=== PATIENT | female | born 1950 | race Caucasian/White ===

== ENCOUNTER 2016-10-24 20:07 | Inpatient (IN) | payer MEDICARE ==
--- NOTE | 2016-10-23 21:30 | NUR ---
nsg: pt received a/o x 4 fr er via with dx of psychosis. pleasant, cooperative but a bit anxious. bp elevated 164/92, will notify Dr. Mathews. no hx of htn. ambulatory. cont to monitor.
[~2016-10-24] VITALS: Ht 165.1 cm; Wt 57.6 kg
--- NOTE | 2016-10-24 20:32 | NUR ---
Patient BIB private ambulance from [facility] for Medical Clearance and GPS admission. Per medical record, patient was found unresponsive by a nephew with medication bottles labeled Xanax, Trazadone, and ibuprofen. Per medical record, patient was intubated and medically treated for the overdose. Urine toxicology was negative at [facility] except ETOH was positive. Patient is A/O x4, ambulatory, calm and cooperative with staff at this time. To room 3A.
[2016-10-24] MEDS ORDERED: CITA40TA11 PO (20:42)
[2016-10-24] MEDS ORDERED: LORA0.5T PO (20:42)
[2016-10-24] MEDS ORDERED: ENOX40DI SQ (20:42)
[2016-10-24] MEDS ORDERED: TRAZ-147 PO (20:42)
[2016-10-24] MEDS ORDERED: MULT1TAB73 PO (20:42)
[2016-10-24] MEDS ORDERED: MAG30ORA PO (20:42)
[2016-10-24] MEDS ORDERED: FOLI1TAB16 PO (20:42)
--- NOTE | 2016-10-24 21:20 | NUR ---
Electronic hold from [facility] in chart, it is a faxed copy. Spoke with Eris Montes, who spoke with Imelda Ayala (Psych Intake) who stated that it was OK to use the FAXED COPY of the ELECTRONIC 6700 HOLD.
--- NOTE | 2016-10-24 21:28 | NUR ---
Pt. admitted to GPS, under care of Dr. Navarro Belongs List completed
[2016-10-24 21:30] VITALS: BP 164/92
[2016-10-24] MEDS ORDERED: MAG HYDROX/AL HYDROX/SIMETH 30 ML LIQUID UDC PO PRN (22:00)
[2016-10-24] MEDS ORDERED: MAGNESIUM HYDROXIDE 30 ML LIQUID UDC PO PRN (22:00)
[2016-10-24] MEDS: LORAZEPAM 0.5 MG TABLET PO PRN (22:03)
[2016-10-24] MEDS: ACETAMINOPHEN 325 MG TABLET PO PRN (22:04)
[2016-10-24] MEDS ORDERED: ACETAMINOPHEN 325 MG TABLET ONE (22:13)
[2016-10-24] MEDS ORDERED: LORAZEPAM 0.5 MG TABLET ONE (22:14)
--- NOTE | 2016-10-24 22:34 | NUR ---
PT Admitted on 5150 (Electronic hold copy from [facility]), per Eris Hutton, contacted Nikky who approved the acceptance of the Pt on the electronic faxed hold copy. No further comments at this time.
[2016-10-24] MEDS ORDERED: AMLODIPINE 5 MG TABLET ONE (23:00)
[2016-10-24] MEDS: AMLODIPINE 5 MG TABLET PO SCH (23:02)
[2016-10-24] MEDS: TEMAZEPAM 7.5 MG CAPSULE PO PRN (23:08)
[2016-10-25 07:30] VITALS: BP 146/87
[2016-10-25 07:37] LABS: BASOPHILS # (AUTO) 0.1 K/uL (0.0-8.0); BASOPHILS % (AUTO) 1.3 % (0.0-2.0); EOSINOPHILS # (AUTO) 0.2 K/uL (0.0-0.7); EOSINOPHILS % (AUTO) 3.7 % (0.0-7.0); HEMATOCRIT 37.4 % (37-47); HEMOGLOBIN 12.6 G/DL (12.0-16.0); LYMPHOCYTES # (AUTO) 0.9 K/UL (0.8-4.8); LYMPHOCYTES % (AUTO) 21.2 % (20.5-51.5); MEAN CORPUSCULAR HEMOGLOBIN 32.1 UUG (27.0-31.0); MEAN CORPUSCULAR HGB CONC 34 g/dL (32.0-37.0); MEAN CORPUSCULAR VOLUME 95.1 FL (81.0-99.0); MONOCYTES # (AUTO) 0.4 K/UL (0.1-1.30); MONOCYTES % (AUTO) 9.5 % (0.0-11.0); NEUTROPHILS # (AUTO) 2.7 K/UL (1.8-8.9); NEUTROPHILS % (AUTO) 64.3 % (38.5-71.5); PLATELET COUNT (AUTO) 209 K/UL (150-450); RED BLOOD CELL COUNT(AUTO) 3.93 MIL/UL (4.2-5.4); WHITE BLOOD COUNT (AUTO) 4.3 K/UL (4.0-11.2)
[2016-10-25 07:58] LABS: THYROID STIMULATING HORMONE 2.343 mIU/mL (0.358-3.740)
[2016-10-25 08:24] LABS: BILIRUBIN,TOTAL 0.5 mg/dL (0.2-1.0); CREATININE 0.8 mg/dL (0.6-1.3); MAGNESIUM 1.9 mg/dL (1.8-2.4); PHOSPHOROUS 3.5 mg/dL (2.5-4.9); POTASSIUM 3.4 mmol/L (3.5-5.1); TOTAL PROTEIN, SERUM 6.3 g/dL (6.4-8.2)
[2016-10-25] MEDS: AMLODIPINE 5 MG TABLET PO SCH ×2 (08:48→20:22)
[2016-10-25] MEDS: FOLIC ACID 1 MG TABLET PO SCH (08:48)
[2016-10-25] MEDS: MULTIVITAMINS,THERAPEUTIC TABLET PO SCH (08:48)
[2016-10-25] MEDS: LORAZEPAM 0.5 MG TABLET PO PRN ×2 (08:50→15:43)
[2016-10-25] MEDS ORDERED: Medication Not On Formulary EA (Multivitamins (Multivitamin) 1 EACH) PO SCH (09:00)
[2016-10-25] MEDS ORDERED: PNEUMOCOCCAL 23-VAL P-SAC VAC 0.5 ML VIAL IM ONE (09:00)
[2016-10-25] MEDS ORDERED: hydrALAZINE HCL 25 MG TABLET PO PRN (10:30)
[2016-10-25] MEDS ORDERED: POTASSIUM CHLORIDE 20 MEQ TAB.PRT.SR PO ONE (10:30)
[2016-10-25] MEDS: THIAMINE HCL 100 MG TABLET PO SCH (12:53)
[2016-10-25 15:00] VITALS: BP 133/78
[2016-10-25] MEDS: CITALOPRAM 20 MG TABLET PO SCH (17:26)
[2016-10-25] MEDS: MIRTAZAPINE 15 MG TABLET PO SCH (20:22)
[2016-10-25 20:40] VITALS: BP 123/78
[2016-10-25] MEDS ORDERED: ATORVASTATIN 10 MG TABLET PO SCH (21:00)
[2016-10-25] MEDS: TEMAZEPAM 7.5 MG CAPSULE PO PRN (22:29)
[2016-10-26] MEDS: ACETAMINOPHEN 325 MG TABLET PO PRN ×2 (03:42→23:11)
[2016-10-26 07:30] VITALS: BP 131/78
--- NOTE | 2016-10-26 08:46 | NUR ---
Initial discharge instructions: Pt resides at home alone [[address] [place], [place],[phone]].Per pt,she would like to return back home once discharged.ADRAINO attempted to contact pt's sister, Malu [phone] but no answer.ADRIANO will speak with pt,family,and MD regarding appropriate discharge plans.ADRIANO will form a safe and proper discharge.
[2016-10-26] MEDS: CITALOPRAM 20 MG TABLET PO SCH (08:56)
[2016-10-26] MEDS: FOLIC ACID 1 MG TABLET PO SCH (08:56)
[2016-10-26] MEDS: MULTIVITAMINS,THERAPEUTIC TABLET PO SCH (08:56)
[2016-10-26] MEDS: THIAMINE HCL 100 MG TABLET PO SCH (08:56)
[2016-10-26] MEDS: AMLODIPINE 5 MG TABLET PO SCH ×2 (08:57→20:45)
[2016-10-26] MEDS: LORAZEPAM 0.5 MG TABLET PO PRN (14:36)
[2016-10-26 15:00] VITALS: BP 128/79
--- NOTE | 2016-10-26 18:37 | NUR ---
patient still depressed and frequently requesting to see cell phone and belongings times two medicated with ativan 0.5mg at 14 35 with some effect after 15 minutes. pt had visitor nephew and no indication of suicidual ideation , continue to monitor for safety
[2016-10-26] MEDS: MIRTAZAPINE 15 MG TABLET PO SCH (20:45)
[2016-10-26 20:58] VITALS: BP 139/82
[2016-10-26] MEDS: TEMAZEPAM 7.5 MG CAPSULE PO PRN (23:11)
[2016-10-27] MEDS: ACETAMINOPHEN 325 MG TABLET PO PRN (06:34)
[2016-10-27] MEDS: LORAZEPAM 0.5 MG TABLET PO PRN ×2 (06:34→19:21)
[2016-10-27 07:30] VITALS: BP 112/71
[2016-10-27] MEDS: CITALOPRAM 20 MG TABLET PO SCH (09:44)
[2016-10-27] MEDS: FOLIC ACID 1 MG TABLET PO SCH (09:44)
[2016-10-27] MEDS: AMLODIPINE 5 MG TABLET PO SCH ×2 (09:45→20:33)
[2016-10-27] MEDS: MULTIVITAMINS,THERAPEUTIC TABLET PO SCH (09:45)
[2016-10-27] MEDS: THIAMINE HCL 100 MG TABLET PO SCH (09:45)
[2016-10-27 16:39] VITALS: BP 133/84
[2016-10-27] MEDS: MIRTAZAPINE 15 MG TABLET PO SCH (20:32)
[2016-10-27 21:01] VITALS: BP 121/73
[2016-10-27] MEDS: TEMAZEPAM 7.5 MG CAPSULE PO PRN (23:14)
[2016-10-28 07:30] VITALS: BP 119/74
[2016-10-28] MEDS: CITALOPRAM 20 MG TABLET PO SCH (09:43)
[2016-10-28] MEDS: MULTIVITAMINS,THERAPEUTIC TABLET PO SCH (09:44)
[2016-10-28] MEDS: AMLODIPINE 5 MG TABLET PO SCH ×2 (09:44→20:39)
[2016-10-28] MEDS: THIAMINE HCL 100 MG TABLET PO SCH (09:44)
[2016-10-28] MEDS: FOLIC ACID 1 MG TABLET PO SCH (09:44)
[2016-10-28] MEDS: LORAZEPAM 0.5 MG TABLET PO PRN ×2 (13:10→19:52)
[2016-10-28 16:00] VITALS: BP 153/92
[2016-10-28 20:00] VITALS: BP 111/71
[2016-10-28] MEDS: MIRTAZAPINE 15 MG TABLET PO SCH (20:38)
[2016-10-29] MEDS: ACETAMINOPHEN 325 MG TABLET PO PRN (00:04)
[2016-10-29] MEDS: TEMAZEPAM 7.5 MG CAPSULE PO PRN (00:04)
[2016-10-29 07:55] VITALS: BP 111/68
[2016-10-29] MEDS: LORAZEPAM 0.5 MG TABLET PO PRN (08:06)
[2016-10-29 08:12] VITALS: BP 111/68
[2016-10-29] MEDS: MULTIVITAMINS,THERAPEUTIC TABLET PO SCH (08:12)
[2016-10-29] MEDS: AMLODIPINE 5 MG TABLET PO SCH (08:12)
[2016-10-29] MEDS: CITALOPRAM 20 MG TABLET PO SCH (08:12)
[2016-10-29] MEDS: FOLIC ACID 1 MG TABLET PO SCH (08:12)
[2016-10-29] MEDS: THIAMINE HCL 100 MG TABLET PO SCH (08:13)
--- NOTE | 2016-10-29 11:27 | NUR ---
PT CALM AND COOPERATIVE. PLEASANT UPON APPROACH. COMPLIANT WITH MEDICATIONS AND CARE. ANXIOUS AT TIMES. DENIES SUICIDAL IDEATIONS. PT SEEMS TO HAVE MORE POSITIVE DISPOSITION. CURRENTLY IN PATIO EXERCISING (JOGGING). ABLE TO MAKE ALL NEEDS KNOWN. TENTATIVE DISCHARGE FOR TODAY BACK TO HOME IN [place].
--- NOTE | 2016-10-29 11:28 | NUR ---
DC Note: Patient will be discharged today home [[address], [place], [address]; [phone]] via private transportation at 1:00 pm. Patient will be picked up by her brother, Judd [phone]. Spoke with Judd who stated he would transport the patient back home today. Patient is encouraged to present at [facility] [[address] [facility] [address]; [phone]] at 9:00 am on 10/30/16 for intake screening. Although per patient and brother, she is planning to follow-up with a program in [place] [[facility] ] in a few weeks. Patient completed the authorization for disclosure form, and hospitalization paperwork were faxed to [facility] [phone]. Patient is aware and agreeable with discharge plans as well. Patient will follow-up with Dr.Robert Felix ([employer]) [[address], [place] [address]; [phone]Linda Moraes (Psychologist) [[address] [place] [address]; . Patient denies any suicidal and homicidal ideations. Patient is alert and oriented x4.
[2016-10-29 12:13] LABS: BASOPHILS # (AUTO) 0.1 K/uL (0.0-8.0); BASOPHILS % (AUTO) 1.6 % (0.0-2.0); BILIRUBIN,TOTAL 0.4 mg/dL (0.2-1.0); CREATININE 1.1 mg/dL (0.6-1.3); EOSINOPHILS # (AUTO) 0.1 K/uL (0.0-0.7); EOSINOPHILS % (AUTO) 1.9 % (0.0-7.0); HEMATOCRIT 47.1 % (37-47); HEMOGLOBIN 15.8 G/DL (12.0-16.0); LYMPHOCYTES # (AUTO) 1.5 K/UL (0.8-4.8); LYMPHOCYTES % (AUTO) 30.2 % (20.5-51.5); MAGNESIUM 1.8 mg/dL (1.8-2.4); MEAN CORPUSCULAR HGB CONC 34 g/dL (32.0-37.0); MEAN CORPUSCULAR VOLUME 95.4 FL (81.0-99.0); MONOCYTES # (AUTO) 0.5 K/UL (0.1-1.30); MONOCYTES % (AUTO) 11.2 % (0.0-11.0); NEUTROPHILS # (AUTO) 2.7 K/UL (1.8-8.9); NEUTROPHILS % (AUTO) 55.1 % (38.5-71.5); PHOSPHOROUS 3.5 mg/dL (2.5-4.9); POTASSIUM 3.8 mmol/L (3.5-5.1); TOTAL PROTEIN, SERUM 8.2 g/dL (6.4-8.2); WHITE BLOOD COUNT (AUTO) 4.9 K/UL (4.0-11.2)
[2016-10-29 12:19] LABS: RED BLOOD CELL COUNT(AUTO) 4.94 MIL/UL (4.2-5.4)
[2016-10-29 12:20] LABS: PLATELET COUNT (AUTO) 374 K/UL (150-450)
--- NOTE | 2016-10-29 13:20 | NUR ---
1240 Discharged instruction given to the patient regarding medications to continue at home. Patient educated when she feeling suicidal , very depressed and wanting to hurt self to call 911 or to come to nearest hospital ER- patient verbalized understanding.All valuables and belongings returned and signed. Prescriptions given to the patient. 1315 Picked up by his brother ,Judd and went home via private car stable condition. Patient denies SI/HI, no delusions/ no hallucinations noted.
== END 2016-10-29 13:15 | disposition home or self-care (01) | DRG 885 ==
LOC: ER 20:08 → GPS 21:09
PROVIDERS: ADMIT Psychiatry & Neurology Psychosomatic Medicine; ATTEND Internal Medicine
DX: F33.2 Major depressive disorder, recurrent severe without psychotic features (principal); E44.0 Moderate protein-calorie malnutrition; Z91.5 Personal history of self-harm; E87.6 Hypokalemia; Z68.21 Body mass index [BMI] 21.0-21.9, adult; I10 Essential (primary) hypertension; T51.0X2D Toxic effect of ethanol, intentional self-harm, subsequent encounter; T42.4X2D Poisoning by benzodiazepines, intentional self-harm, subsequent encounter; F10.10 Alcohol abuse, uncomplicated; E78.5 Hyperlipidemia, unspecified; F41.9 Anxiety disorder, unspecified
CPT/HCPCS: 36415; 82306; 83735; 84100; 84443; 85025; 90732; A4663